=== PATIENT | male | born 1955 | race Caucasian/White ===

== ENCOUNTER 2016-12-03 15:37 | Emergency (ER) | payer MEDICAID ==
[~2016-12-03] VITALS: Ht 175.3 cm; Wt 74.8 kg
[2016-12-03] MEDS ORDERED: NEURONTIN800 MG PO (15:58)
[2016-12-03] MEDS ORDERED: FLEXERIL10 MG PO (15:59)
[2016-12-03] MEDS ORDERED: FIORICET1 CAP PO (16:00)
[2016-12-03] MEDS ORDERED: PERCOCET1 TA1 PO (16:01)
[2016-12-03] MEDS ORDERED: TORADOL10 MG PO (16:45)
--- NOTE | 2016-12-03 16:46 | Emergency Room Report ---
History of Present Illness Time Seen by MD Rodriguez Presenting Problem in Triage Pt arrived:Walked Presenting Problem:BACK PAIN, CHRONIC, WORSE FOR 2 WEEKS Onset of symptoms date/time:/ or onset unknown for:MEDICAL HX UNKNOWN Treatment Prior to Arrival: [employer] Provided by: Sepsis Risk Assessment: Temp: 98.9 B/P: 124/84 MAP: 97 Pulse: 110 Resp: 18 Recent fever? N Clinical Suspician of Infection? N Mental Status: 1 - Regular (Normal Baseline) Sepsis Risk:Low Sepsis Risk Have you (or family members/close friends) recently traveled outside the [place]? N If Yes, where/when: Have you had exposure to infectious disease within the past month? N TB? Other? Specify: 61 years old white male with chronic lower back pain since an accident in 2009. He is scheduled see the pain clinic. As noted change in his pain pattern but he is needing help until he's seen in 2 weeks. Pain is sharp radiating to both lower extremities without weakness or sphincter disturbance. Source patient, RN notes reviewed Exam Limitations no limitations ALLERGIES Coded Allergies: No Known Allergies (12/03/16) Home Medications Reported Medications Gabapentin (Neurontin) 800 MG PO BID Cyclobenzaprine Hcl (Flexeril) 5 MG PO BID BUTALB/ACETAMINOPHEN/CAFFEINE (Fioricet 50-300-40 MG Capsule) 1 CAP PO ONCE OXYCODONE HCL/ACETAMINOPHEN (Percocet 10-325 MG Tablet) 1 TAB PO 3XDAY History Medical History General CAD? No Angina: No [place]: No Hypertension? No Hyperlipidemia? Yes CHF? No DVT? No PE? No COPD? No Asthma? No Anemia? No GERD? No Gastric ulcers? No GI Bleed? No Hernia? No Thyroid Problems? No Hypothyroidism? No CVA? No Seizures? No Diabetes? No Renal Insuffiency? No End Stage Renal Disease? No UTI? No Stones? No BPH? No GB Disease: No Nephritic Syndrome? No Asplenia? No Hepatitis? No Sickle Cell Disease? No Arthritis? No Migraines? No Cataracts? No Glaucoma? No MRSA? No HIV? No TB? No Anxiety? No Depression? No Cancer? No More? Yes Additional hx: CHRONIC BACK Immunization Hx DT/Tetanus Unknown Surgical Hx Previous Surgery?Y LEG SURGERY Social History Smoking Hx Smoker: Former Smoker Tobacco: No Type Cigarettes Alcohol Alcohol: No Review of Systems All Other Systems Reviewed and Negative Constitutional no symptoms reported Eyes no symptoms reported ENT no symptoms reported. Respiratory no symptoms reported Cardiovascular no symptoms reported Gastrointestinal no symptoms reported Genitourinary no symptoms reported. Musculoskeletal see HPI, back pain Skin no symptoms reported Psychiatric/Neurological no symptoms reported Physical Exam Vital Signs Vital Signs Date Time Temp Pulse Resp B/P Pulse O2 O2 Flow FiO2 Ox Delivery Rate 12/03 1550 98.9 110 18 124/84 98 - WBC >12,000 or <4,000 or 10% bands? 2 or more SIRS Criteria Met? B/P:124/84 MAP:97 Creatinine >2.0? UA output<0.5ml/kg/hr for 2 hrs? Platelet count >100,000? Lactate >2.0mmol/1? INR >1.2 or PTT > than 60 sec? Evidence of Organ Dysfunction? Provider documented clinical suspician of infection? N Sepsis Criteria Count: 1 Sepsis Risk: Low Sepsis Risk General Appearance normal appearance, WD/WN Eye Exam - bilateral eye normal exam, bilateral eye PERRL, bilateral eye EOMI Neck normal inspection, non-tender, supple, full range of motion Respiratory Status Yes: trachea midline, chest symmetrical, non tender chest. No: respiratory distress. Lung Sounds bilateral: normal breath sounds, lungs clear. 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 Reflexes Reflexes normal Yes Skin intact, normal color, warm/dry Medical Decision Making LABS/Meds/Orders Pt receiving controlled substance in ED? No Departure Departure Time of Disposition 1644 Disposition DC Home or Self Care(routine) Clinical Impression Primary Impression: Chronic low back pain Condition STABLE Referrals [facility]ARC[facility],[place] Additional Instructions I explained to the patient and limitation of using "controlled substances for chronic pain. He verbalizes understanding. Discharge Counseling Counseled pt/family regarding diagnosis, test results, medications/RX, home care Prescriptions Current Visit Scripts KETOROLAC TROMETHAMINE (TORADOL 10MG) 10 MG PO Q12HP #6 TAB ED Critical Care Critical Care No at [id number]
[2016-12-03 16:57] VITALS: BP 122/78
== END 2016-12-03 16:57 | disposition home or self-care (01) ==
LOC: ER 15:37
DX: G89.29 Other chronic pain (principal); M54.5 Low back pain; Z79.899 Other long term (current) drug therapy; Z87.891 Personal history of nicotine dependence